=== PATIENT | female | born 2000 | race Caucasian/White ===

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

== ENCOUNTER → 2018-06-29 | Outpatient (CLI) | payer BC ==
[2018-06-29 17:29] LABS: HGB 12.7 gm/dL (11.4-16.0); MCHC 34.3 g/dL (31.0-37.0); MCV 87.4 fL (80.0-100.0); Mean Platelet Volume 7.3; Platelet Count 268 k/uL (150-450); RBC 4.24 m/uL (3.80-5.40); WBC 11.1 k/uL (4.0-11.0)
[2018-06-30 00:35] LABS: HIV 1 AB Non-Reactive (Non-Reactive); HIV AB P24 Non-Reactive (Non-Reactive); HIV P24 AG Non-Reactive (Non-Reactive)
[2018-07-02 06:27] LABS: Toxoplasma Antibody (IgG) <3.0 IU/mL (<7.2); Toxoplasma Antibody (IgM) 5.3 AU/mL (<8.0)
== END | disposition home or self-care (01) ==
LOC: LABWHC1 16:21
PROVIDERS: ATTEND Obstetrics & Gynecology
DX: Z34.81 Encounter for supervision of other normal pregnancy, first trimester (principal); Z3A.00 Weeks of gestation of pregnancy not specified
CPT/HCPCS: 36415; 82565; 82947; 85027; 86762; 86777; 86778; 86780; 86850; 86900; 86901; 87340; 87390

== ENCOUNTER 2018-09-17 23:02 | Outpatient (CLI) | payer BC, OTHER ==
[2018-09-17 23:38] VITALS: PULSE 84; RESP 16; TEMP 98.5
--- NOTE | 2018-09-18 07:37 | P.MSEPDOC ---
Presenting Problems - Arrival Data Date of Arrival on Unit: 09/17/18 Time of Arrival on Unit: 22:59 Mode of Transport: Ambulatory - Complaint OB-Reason for Admission/Chief Complaint: Possible Onset of Labor Medical History - Information : 1 Para: 0 Number of Living Children: 0 - Gestational Age Gestational Age by CHUCKY (wks/days): 25 Weeks and 5 Days Review of Systems - Review of Systems Constitutional: No problems Breast: No problems ENT: No problems Cardiovascular: No problems Respiratory: No problems Gastrointestinal: No problems Genitourinary: No problems Musculoskeletal: No problems Neurological: No problems Skin: No problems Vital Signs - Temperature Temperature: 98.5 F Temperature Source: Temporal Artery Scan - Pulse Right Sitting Brachial Pulse Rate: 84 Pulse Assessment Method: Pulse Oximetry - Respirations Respiratory Rate: 16 Oxygen Delivery Method: Room Air O2 Sat by Pulse Oximetry: 97 Medical Screen Scoring (Pre) - Cervical Exam Dilation: Exam Deferred Effacement: Exam Deferred Membranes: Intact - Uterine Contractions Frequency: N/A Duration: N/A Intensity: N/A - Maternal Vital Signs Maternal Temperature: N/A Maternal Blood Pressure: N/A Signs of Preeclampsia: N/A Maternal Respirations: N/A - Maternal Trauma Maternal Trauma: N/A - Assessment - Baby A Baseline FHR: 140 Heart Rate - NICHD Category: Category I (Normal) = 0 Position: N/A Station: N/A - Total Score - Baby A Total Score - Baby A: 0 - Total Score - Baby B Total Score - Baby B: 0 - Total Score - Baby C Total Score - Baby C: 0 - Level of Risk - Baby A Level of Risk - Baby A: Low (0-5) - Level of Risk - Baby B Level of Risk - Baby B: Low (0-5) - Level of Risk - Baby C Level of Risk - Baby C: Low (0-5) Physician Notification (Pre) - Physician Notified Physician Notified Date: 09/17/18 Physician Notified Time: 23:38 Physician/Practitioner Notifed:: dr marcos Spoke With: dr marcos New Order Received: Yes Disposition - Disposition OB Disposition: Discharge to home I agree with the RN Medical Screening Exam: Yes Risk & Benefit of care provided described in d/c instruction: Yes Diagnosis: DECREASED MOVEMENTS, SECOND TRIMESTER, UNSP
== END 2018-09-17 23:50 | disposition home or self-care (01) ==
LOC: FBPOP 23:02
PROVIDERS: ATTEND Obstetrics & Gynecology
DX: O36.8120 Decreased fetal movements, second trimester, not applicable or unspecified (principal); Z3A.25 25 weeks gestation of pregnancy
CPT/HCPCS: 99213

== ENCOUNTER 2018-11-14 12:33 | Emergency (ER) | payer BC, OTHER ==
[2018-11-14 12:39] VITALS: RESP 18
[2018-11-14] MEDS ORDERED: METOCLOPRAMIDE 5 MG/ML 2 ML VIAL IVP STA (14:01)
[2018-11-14] MEDS ORDERED: SODIUM CHLORIDE 0.9% 1,000 ML IV STA (14:01)
--- NOTE | 2018-11-14 14:22 | ED ---
General Adult HPI - General Chief complaint: Neuro Symptoms/Deficit Stated complaint: 34wks preg, hand/facial numbness Time Seen by Provider: 11/14/18 13:25 Source: patient Mode of arrival: ambulatory Limitations: no limitations - History of Present Illness Initial comments: Dictation was produced using [employer] dictation software. please excuse any grammatical, word or spelling errors. Chief Complaint: 18-year-old female 34 weeks presents with a 5 minute episode of right upper extremity and right facial paresthesia. History of Present Illness: 18-year-old female yesterday she had a 5 minute episode of right upper extremity right facial paresthesia. Patient denies any significant numbness. She states that last night. First it started with 2-3 minutes of right hand paresthesias. Shortly after she had some right facial paresthesias. States her total symptoms lasted approximately 5 minutes. Patient's been having a headache since yesterday. She does have establish OB care. no bleeding or vaginal cramping The ROS documented in this emergency department record has been reviewed and confirmed by me. Those systems with pertinent positive or negative responses have been documented in the HPI. All other systems are other negative and/or noncontributory. PHYSICAL EXAM: General Impression: Alert and oriented x3, not in acute distress HEENT: Normocephalic atraumatic, extra-ocular movements intact, pupils equal and reactive to light bilaterally, mucous membranes moist. Cardiovascular: Heart regular rate and rhythm, S1&S2 audible, no murmurs, rubs or gallops Chest: Lungs clear to auscultation bilaterally, no rhonchi, no wheeze, no rales Abdomen: Bowel sounds present, abdomen soft, non-tender, non-distended, no organomegaly Musculoskeletal: Pulses present and equal in all extremities, no peripheral edema Motor: no focal deficits noted Neurological: CN II-XII grossly intact, no focal motor or sensory deficits noted Skin: Intact with no visualized rashes Psych: Normal affect and mood ED course: 18-year-old female presents with headache and 5 minute episode of right upper shortly right facial paresthesias. Patient states she has a history of headache. Vital signs upon arrival are within acceptable limits. Patient is well-appearing at this time. Discussed patient case with neurology Dr. Kaur. Patient unlikely to have cavernous sinus thrombosis given that her symptoms are transient.Patient reevaluated at bedside with improvement of headache. Laboratory evaluation obtained showing no acute processes. Patient counseled on by some modification to avoid headache exacerbation. She is told to maintain good hydration, well-balanced diet, get adequate sleep and avoid stress. Patient understandable agreeable to plan. Return parameters discussed. Patient went for discharge. Point of care bedside ultrasound was performed. Patient has heart rate of approximately 145 bpm. - Related Data Home Medications Medication Instructions Recorded Confirmed Acetaminophen Tab [Tylenol Tab] 1,000 mg PO Q6HR PRN 11/14/18 11/14/18 Pnv,Calcium 72/Iron/Folic Acid 1 tab PO HS 11/14/18 11/14/18 [ Plus Tablet] Allergies Allergy/AdvReac Type Severity Reaction Status Date / Time No Known Allergies Allergy Verified 11/14/18 13:19 Review of Systems ROS Statement: Those systems with pertinent positive or pertinent negative responses have been documented in the HPI. ROS Other: All systems not noted in ROS Statement are negative. Past Medical History Past Medical History: GERD/Reflux History of Any Multi-Drug Resistant Organisms: None Reported Past Surgical History: No Surgical Hx Reported Additional Past Surgical History / Comment(s): oral surgery Past Psychological History: No Psychological Hx Reported Smoking Status: Never smoker Past Alcohol Use History: None Reported Past Drug Use History: None Reported General Exam Limitations: no limitations Course Vital Signs 11/14/18 11/14/18 12:35 14:20 Temperature 97.9 F Pulse Rate 126 H 74 Respiratory 18 18 Rate Blood Pressure 125/76 109/74 O2 Sat by Pulse 98 100 Oximetry Medical Decision Making - Lab Data Result diagrams: 11/14/18 14:10 11/14/18 14:10 Lab Results 11/14/18 11/14/18 Range/Units 14:10 14:10 WBC 11.4 H (4.0-11.0) k/uL RBC 4.16 (3.80-5.40) m/uL Hgb 12.1 (11.4-16.0) gm/dL Hct 35.2 (34.0-46.0) % MCV 84.6 (80.0-100.0) fL MCH 29.2 (25.0-35.0) pg MCHC 34.5 (31.0-37.0) g/dL RDW 13.6 (11.5-15.5) % Plt Count 172 (150-450) k/uL Neutrophils % 86 % Lymphocytes % 7 % Monocytes % 5 % Eosinophils % 1 % Basophils % 0 % Neutrophils # 9.8 H (1.3-7.7) k/uL Lymphocytes # 0.8 L (1.0-4.8) k/uL Monocytes # 0.5 (0-1.0) k/uL Eosinophils # 0.2 (0-0.7) k/uL Basophils # 0.0 (0-0.2) k/uL Sodium 138 (137-145) mmol/L Potassium 4.0 (3.5-5.1) mmol/L Chloride 106 (98-107) mmol/L Carbon Dioxide 25 (22-30) mmol/L Anion Gap 7 mmol/L BUN 10 (7-17) mg/dL Creatinine 0.57 (0.52-1.04) mg/dL Est GFR (CKD-EPI)AfAm >90 (>60 ml/min/1.73 sqM) Est GFR (CKD-EPI)NonAf >90 (>60 ml/min/1.73 sqM) Glucose 74 (74-99) mg/dL Calcium 9.3 (8.4-10.2) mg/dL Magnesium 2.0 (1.6-2.3) mg/dL Disposition Clinical Impression: Headache Disposition: HOME SELF-CARE Condition: Good Instructions (If sedation given, give patient instructions): Acute Headache (ED) Is patient prescribed a controlled substance at d/c from ED?: No Referrals: None,Stated [Primary Care Provider] - 1-2 days Time of Disposition: 15:27
[2018-11-14 14:27] LABS: Basophils % (A) 0 %; Eosinophils # (A) 0.2 k/uL (0-0.7); Eosinophils % (A) 1 %; HCT 35.2 % (34.0-46.0); HGB 12.1 gm/dL (11.4-16.0); Lymphocytes # (A) 0.8 k/uL (1.0-4.8); Lymphocytes % (A) 7 %; MCH 29.2 pg (25.0-35.0); MCHC 34.5 g/dL (31.0-37.0); MCV 84.6 fL (80.0-100.0); Monocytes # (A) 0.5 k/uL (0-1.0); Monocytes % (A) 5 %; Neutrophils # (A) 9.8 k/uL (1.3-7.7); Neutrophils % (A) 86 %; Platelet Count 172 k/uL (150-450); RBC 4.16 m/uL (3.80-5.40); RDW 13.6 % (11.5-15.5); WBC 11.4 k/uL (4.0-11.0)
[2018-11-14 14:36] LABS: African American GFR (CKD) >90 (>60 ml/min/1.73 sqM); Anion Gap 7 mmol/L; Blood Urea Nitrogen 10 mg/dL (7-17); Calcium 9.3 mg/dL (8.4-10.2); Carbon Dioxide 25 mmol/L (22-30); Chloride 106 mmol/L (98-107); Glucose 74 mg/dL (74-99); Sodium 138 mmol/L (137-145)
[2018-11-14 15:37] VITALS: BP 112/81; PULSE 72; TEMP 97.8
== END 2018-11-14 15:37 | disposition home or self-care (01) ==
LOC: EC 12:33
DX: O99.89 Other specified diseases and conditions complicating pregnancy, childbirth and the puerperium (principal); R51 Headache; R20.2 Paresthesia of skin; Z3A.34 34 weeks gestation of pregnancy
CPT/HCPCS: 36415; 80048; 83735; 85025; 99284; 96374; 96361; J2765

== ENCOUNTER 2018-12-14 21:11 | Inpatient (IN) | payer BC, OTHER ==
[2018-12-14] MEDS: LACTATED RINGERS 1,000 ML IV SCH (22:04)
[2018-12-14 22:14] LABS: Basophils # (A) 0.1 k/uL (0-0.2); Basophils % (A) 1 %; Eosinophils # (A) 0.2 k/uL (0-0.7); Eosinophils % (A) 2 %; HCT 31.5 % (34.0-46.0); HGB 10.3 gm/dL (11.4-16.0); Lymphocytes # (A) 1.1 k/uL (1.0-4.8); Lymphocytes % (A) 11 %; MCHC 32.9 g/dL (31.0-37.0); MCV 85.3 fL (80.0-100.0); Mean Platelet Volume 7.8; Monocytes # (A) 0.6 k/uL (0-1.0); Monocytes % (A) 6 %; Neutrophils % (A) 79 %; Platelet Count 175 k/uL (150-450); RBC 3.69 m/uL (3.80-5.40); RDW 14.2 % (11.5-15.5); WBC 10.1 k/uL (4.0-11.0)
--- NOTE | 2018-12-14 22:21 | US ---
EXAMINATION TYPE: US OB limited DATE OF EXAM: 12/14/2018 COMPARISON: NONE CLINICAL HISTORY: see if head down . SROM EXAM PERFORMED: OBTA GESTATIONAL AGE / DATING Physician Established: (38 weeks/2 days) EDC: 12/26/2018 No growth performed on today?s study per ordering physician SURVEY PRESENTATION: Vertex LIE: Longitudinal HEART RATE: 160 bpm RHYTHM: Normal IMPRESSION: This limited exam shows cephalic presentation. The heart rate is 160.
[2018-12-14 22:28] LABS: ALT 15 U/L (9-52); AST 23 U/L (14-36); African American GFR (CKD) >90 (>60 ml/min/1.73 sqM); Blood Urea Nitrogen 14 mg/dL (7-17); LDH 478 U/L (313-618)
[2018-12-14 22:31] LABS: INR 0.8 (<1.2); Partial Thromboplastin Time 24.7 sec (22.0-30.0); Prothrombin Time 9.4 sec (9.0-12.0)
[2018-12-14 22:54] VITALS: BMI 29.2
[2018-12-14] MEDS: OXYTOCIN 30 UNITS/500 ML NS 30 UNIT in SALINE 1 500ML.BAG IV SCH (23:00)
[2018-12-14] MEDS ORDERED: LIDOCAINE 0.5% (PF) 5 MG/ML (50 ML SDV) SQ PRN (23:02)
[2018-12-14] MEDS ORDERED: TERBUTALINE 1 MG/ML VIAL SQ PRN (23:02)
[2018-12-14] MEDS ORDERED: CARBOPROST TROMETHAMINE 250 MCG/ML 1 ML AMP IM PRN (23:02)
[2018-12-14] MEDS ORDERED: OXYTOCIN 10 UNIT/ML 1 ML VIAL IM PRN (23:02)
[2018-12-14] MEDS ORDERED: METHYLERGONOVINE 0.2 MG/ML 1 ML AMP IM PRN (23:02)
[2018-12-14] MEDS ORDERED: BUTORPHANOL 1 MG/ML 1 ML VIAL IV PRN (23:07)
[2018-12-14] MEDS ORDERED: LACTATED RINGERS 1,000 ML IV SCH (23:15)
[2018-12-14 23:52] LABS: Appearance,Urine Clear (Clear); Bilirubin,Urine Negative (Negative); Blood,Urine Negative (Negative); Color,Urine Light Yellow; Glucose,Urine (UA) Negative (Negative); Ketones,Urine Negative (Negative); Leukocyte Esterase,Urine Negative (Negative); Nitrite,Urine Negative (Negative); PH, Urine 6.5 (5.0-8.0); Protein,Urine Trace (Negative); Specific Gravity,Urine 1.008 (1.001-1.035); Urobilinogen,Urine <2.0 mg/dL (<2.0)
[2018-12-15 00:11] LABS: Creatinine,Urine Random 41.8 mg/dL
--- NOTE | 2018-12-15 01:29 | P.HPOB ---
History of Present Illness H&P Date: 12/15/18 Chief Complaint: Intrauterine at term: Prom Patient is a 18-year-old at 38 weeks gestation who arrives following spontaneous rupture membranes at approximately 5:00 this evening. She relates that the fluid was clear and continue to come out but she was uncertain what it is and some at 7:30 she called and I spoke with her and advised her to go to labor and delivery. At 9:30 she arrived to labor and delivery and verification of spontaneous rupture membranes was noted. She's had no contractions and is feeling no contractions. Due to her cervical exam being closed thick and high will plan to augment labor with Pitocin as she is Italo ruptured. She is aware that this may be a lengthy process, however she does have a category 1 tracing and she has no other medical concerns or issues. On initial presentation she did have some mildly elevated blood pressures but they have stabilized. Pre- clamped labs were done and while the vast majority of the pre-clamped labs were normal is noted that she had trace protein with an elevated protein creatinine ratio. This is difficult to interpret with such small amount of routine in the sample however cannot fully rule out mild preeclampsia. Pitocin augmentation of labor would be the recommendation in this situation regardless. She and I did have a long discussion on potentially needing a section if she is not make change and continues to be in labor for an extended time frame and/or if her blood pressures or other changes begin to occur. We'll plan to initiate antibiotic therapy once outside of approximately 15-18 hours following rupture membranes. Pertinent labs include O+ blood type, Rh and it was negative, rubella was immune, hepatitis B surface antigen and RPR were negative. GBS is also negative. Past Medical History Past Medical History: GERD/Reflux History of Any Multi-Drug Resistant Organisms: None Reported Past Surgical History: No Surgical Hx Reported Additional Past Surgical History / Comment(s): Douglass teeth Past Anesthesia/Blood Transfusion Reactions: No Reported Reaction Past Psychological History: No Psychological Hx Reported Smoking Status: Former smoker Past Alcohol Use History: None Reported Past Drug Use History: Marijuana - Past Family History Mother Family Medical History: No Reported History Medications and Allergies Home Medications Medication Instructions Recorded Confirmed Type Acetaminophen Tab [Tylenol Tab] 1,000 mg PO Q6HR PRN 11/14/18 11/14/18 History Pnv,Calcium 72/Iron/Folic Acid 1 tab PO HS 11/14/18 11/14/18 History [ Plus Tablet] Allergies Allergy/AdvReac Type Severity Reaction Status Date / Time No Known Allergies Allergy Verified 12/14/18 21:32 Exam Osteopathic Statement: *. No significant issues noted on an osteopathic structural exam other than those noted in the History and Physical/Consult. Vital Signs Temp Pulse Resp BP Pulse Ox 12/14/18 22:29 98.8 F 86 16 138/98 99 12/14/18 21:40 98.8 F 86 16 138/98 99 Intake and Output 12/14/18 12/14/18 12/15/18 14:59 22:59 06:59 Other: Weight 77.111 kg - OBG Physical Exam Breast: both: normal (no masses) Abdomen: bowel sounds normal, no diffuse tenderness, no bruit present, no g uarding noted, no hepatomegaly, no splenomegaly, no mass Vulva: both: normal Vagina: normal moisture, no discharge Cervix: no lesion, no discharge Uterus: normal size, normal contour Adnexa: both: normal Anus/Rectum: normal perianal skin, no rectal mass, no hemorrhoids, heme negative Results Result Diagrams: 12/14/18 22:06 12/14/18 22:06 Abnormal Lab Results - Last 24 Hours (Table) 12/14/18 12/14/18 12/14/18 Range/Units 22:06 23:30 23:30 RBC 3.69 L (3.80-5.40) m/uL Hgb 10.3 L (11.4-16.0) gm/dL Hct 31.5 L (34.0-46.0) % Neutrophils # 8.0 H (1.3-7.7) k/uL Urine Protein Trace H (Negative) U Random Total Protein 23 H (<12) mg/dL
[2018-12-15] MEDS: LACTATED RINGERS 1,000 ML IV SCH ×3 (05:09→15:35)
[2018-12-15] MEDS ORDERED: ACETAMINOPHEN IV (For NPO) 1,000 MG in EMPTY BAG 1 BAG IVPB STA (07:39)
[2018-12-15] MEDS ORDERED: CITRIC ACID-SODIUM CITRATE 15 ML CUP PO ONE (08:07)
[2018-12-15] MEDS ORDERED: OXYTOCIN 10 UNIT/ML 1 ML VIAL ONE (10:21)
[2018-12-15] MEDS ORDERED: ONDANSETRON 4 MG/2 ML VIAL ONE (10:21)
[2018-12-15] MEDS ORDERED: NALBUPHINE 10 MG/ML (1 ML AMP) ONE (10:21)
[2018-12-15] MEDS ORDERED: MORPHINE SULFATE (PF) 0.3 MG/0.3 ML SYR ONE (10:21)
[2018-12-15] MEDS ORDERED: KETOROLAC 30 MG/ML 1 ML VIAL ONE (10:21)
[2018-12-15] MEDS ORDERED: diphenhydrAMINE 50 MG/ML 1 ML VIAL IVP PRN ×3 (10:41→10:57)
[2018-12-15] MEDS ORDERED: HYDROmorphone 0.5 MG/0.5 ML SYRINGE IVP PRN (10:41)
[2018-12-15] MEDS ORDERED: NALOXONE 0.4 MG/ML 1 ML VIAL IV PRN ×2 (10:41→10:57)
[2018-12-15] MEDS ORDERED: ONDANSETRON 4 MG/2 ML VIAL IVP PRN ×2 (10:41→10:57)
[2018-12-15] MEDS ORDERED: diphenhydrAMINE 25 MG CAP PO PRN (10:57)
[2018-12-15] MEDS ORDERED: diphenhydrAMINE 50 MG CAP PO PRN (10:57)
[2018-12-15] MEDS ORDERED: ZOLPIDEM 5 MG TAB PO PRN (10:57)
[2018-12-15] MEDS ORDERED: ACETAMINOPHEN TAB 325 MG TAB PO PRN (10:57)
[2018-12-15] MEDS ORDERED: METOCLOPRAMIDE 5 MG/ML 2 ML VIAL IVP PRN (10:57)
--- NOTE | 2018-12-15 11:02 | P.OP ---
Date of Procedure: 12/15/18 Preoperative Diagnosis: Intrauterine : Failure to progress Postoperative Diagnosis: Same Procedure(s) Performed: Primary low transverse section Anesthesia: spinal Surgeon: Js Gonzales Air Support Control Officer #1: Iveth Elaine Estimated Blood Loss (ml): 500 IV fluids (ml): 700 Urine output (ml): 50 Pathology: other (Placenta) Condition: stable Disposition: floor Operative Findings: Male scores 9 and 9 at one and 5 minutes respectively and the weight was 8 lbs. 2 oz. Patient did not dilate through the night despite Pitocin augmentation and she declined to continue moving forward with induction. Description of Procedure: Patient was taken to the operative suite where a spinal anesthetic was found be adequate. She was prepped and draped in the normal sterile fashion and placed in the dorsal supine position with leftward tilt. Initially a Pfannenstiel skin incision was made and this incision was then carried through to underlying layer of the fascia with the second knife. Fascia was then nicked in the midline and this opening was extended laterally with Coto scissors. Superior and inferior aspect of this incision were then grasped tented up and bluntly and sharply dissected off the rectus muscles. Rectus muscles were then divided the midline and sharp dissection through the peritoneum was performed. This opening was then extended superiorly and inferiorly with good visualization of both bowel bladder. Bladder blade was then placed and the bladder flap identified. It was entered with Metzenbaum scissors and carried across face the uterus. Bladder flap was then digitally created. Knife was then used to incise uterus. Entry into the uterus was then completed with a hemostat and the incision was then extended bluntly. We'll fluid was there was noted to be slightly meconium- stained. Head was then H medically delivered followed by anterior posterior shoulders and mouth nares bulb suctioned. Once baby was fully delivered u mbilical cord was clamped and cut in usual fashion an nursery personnel was present to assume care. Placenta was then delivered intact and noted to be meconium-stained. Blood and debris was then removed from the uterus as it was exteriorized. It was then closed in 2 layers with 0 Vicryl suture. Once excellent hemostasis was obtained 3-0 Vicryl was used to reapproximate the bladder flap. Blood and debris was then suctioned from the posterior cul-de-sac and uterus was reinserted into the abdomen. Peritoneal layer was then closed with 0 Vicryl suture. Fascial layer was closed with 0 Vicryl. One layer of 3-0 Vicryl was placed in deep subcuticular tissues to reapproximate the skin and close the space. Skin was then closed with 3-0 Vicryl subcuticularly. Sponge, lap, needle counts were all correct 2. Patient was then taken to the recovery room in stable and satisfactory condition.
[2018-12-15 13:27] LABS: HCT 26.4 % (34.0-46.0); MCH 28.3 pg (25.0-35.0); MCV 85.9 fL (80.0-100.0); Mean Platelet Volume 8.9; Platelet Count 184 k/uL (150-450); RBC 3.07 m/uL (3.80-5.40); RDW 14.2 % (11.5-15.5); WBC 10.7 k/uL (4.0-11.0)
[2018-12-15 13:41] LABS: HGB 8.7 gm/dL (11.4-16.0)
[2018-12-15] MEDS: KETOROLAC 30 MG/ML 1 ML VIAL IVP PRN ×2 (15:33→23:04)
[2018-12-16] MEDS: SENNOSIDES-DOCUSATE SODIUM 1 EACH TAB PO SCH ×3 (01:17→19:35)
[2018-12-16] MEDS: KETOROLAC 30 MG/ML 1 ML VIAL IVP PRN ×2 (05:21→10:36)
[2018-12-16 06:56] LABS: Basophils % (A) 0 %; Eosinophils # (A) 0.1 k/uL (0-0.7); Eosinophils % (A) 2 %; HCT 20.9 % (34.0-46.0); Lymphocytes # (A) 0.8 k/uL (1.0-4.8); Lymphocytes % (A) 11 %; MCH 28.6 pg (25.0-35.0); MCHC 33.2 g/dL (31.0-37.0); MCV 86.1 fL (80.0-100.0); Mean Platelet Volume 8.9; Monocytes # (A) 0.3 k/uL (0-1.0); Monocytes % (A) 5 %; Neutrophils % (A) 81 %; Platelet Count 135 k/uL (150-450); RBC 2.43 m/uL (3.80-5.40); RDW 14.3 % (11.5-15.5); WBC 7.3 k/uL (4.0-11.0)
[2018-12-16] MEDS: HYDROcodone/APAP 7.5-325MG 1 EACH TAB PO PRN ×3 (08:37→19:34)
--- NOTE | 2018-12-16 11:29 | P.PNOBGPC ---
Subjective - Subjective Principal diagnosis: Postop day 1 Interval history: Doing well postop day 1. She is involuting, voiding and she is tolerating her diet. She voices no complaints. Vital signs are stable and afebrile. Patient reports: Reports appetite normal, Reports voiding normally, Reports pain well controlled, Reports ambulating normally : doing well Objective - Vital Signs Latest vital signs: Vital Signs Temp Pulse Resp BP Pulse Ox 12/16/18 09:00 18 12/16/18 08:30 99.1 F 91 16 125/67 97 12/16/18 05:00 16 12/16/18 04:00 98.3 F 84 16 107/73 99 12/16/18 03:00 16 99 12/16/18 01:00 16 12/16/18 00:00 98.5 F 73 16 135/88 99 12/15/18 23:00 16 99 12/15/18 21:00 16 12/15/18 20:00 98.2 F 73 18 127/81 100 12/15/18 19:00 98.5 F 73 16 135/88 99 12/15/18 17:00 20 12/15/18 15:49 97.5 F L 86 16 126/81 98 12/15/18 15:41 98 12/15/18 15:00 97.5 F L 86 16 126/81 98 12/15/18 13:41 16 12/15/18 13:07 86 16 115/65 99 12/15/18 12:32 84 16 110/74 98 12/15/18 12:06 71 16 121/71 98 12/15/18 11:51 78 16 125/66 97 12/15/18 11:41 16 97 12/15/18 11:37 72 16 109/59 97 Intake and Output 12/15/18 12/16/18 12/16/18 22:59 06:59 14:59 Intake Total 1000 Output Total 300 1200 Balance 700 -1200 Intake: IV 1000 Lactated Ringers 1,000 ml 1000 @ 125 mls/hr IV .Q8H [facility] Rx#:[id number] Output: Urine 300 1200 Uretheral (Miller) 300 Other: Voiding Method Indwelling Catheter # Voids 1 1 - Exam Lungs: bilateral: normal Chest: Normal S1, Normal S2 Extremities: Present: normal Abdomen: Present: normal appearance, soft. Absent: distention, tenderness Incision: Present: normal, dry, intact Uterus: Present: normal, firm - Labs Labs: Abnormal Lab Results - Last 24 Hours (Table) 12/15/18 12/16/18 Range/Units 13:11 06:44 RBC 3.07 L 2.43 L (3.80-5.40) m/uL Hgb 8.7 L D 7.0 L D (11.4-16.0) gm/dL Hct 26.4 L 20.9 L (34.0-46.0) % Plt Count 135 L (150-450) k/uL Lymphocytes # 0.8 L (1.0-4.8) k/uL
--- NOTE | 2018-12-16 12:22 | P.PN ---
Progress Note - Text Progress Note Date: 12/16/18 Postoperative day 1 status post section under spinal anesthesia, and i ntrathecal morphine given for postoperative analgesia, patient doing well, there is no anesthesia related complications, Patient had no headache, vital signs stable , Assessment and plan= postop day 1 status post , doing well there is no anesthesia related complication.
[2018-12-16] MEDS: LACTATED RINGERS 1,000 ML IV SCH ×3 (21:24→21:25)
[2018-12-16] MEDS: OXYTOCIN 30 UNITS/500 ML NS 30 UNIT in SALINE 1 500ML.BAG IV SCH (21:24)
[2018-12-16] MEDS: IBUPROFEN 600 MG TAB PO PRN (21:51)
[2018-12-17] MEDS: HYDROcodone/APAP 7.5-325MG 1 EACH TAB PO PRN ×3 (03:40→17:42)
--- NOTE | 2018-12-17 06:27 | P.PNOBGPC ---
Subjective - Subjective Patient reports: Reports appetite normal, Reports voiding normally, Reports pain well controlled, Reports ambulating normally : doing well Objective - Vital Signs Latest vital signs: Vital Signs Temp Pulse Resp BP Pulse Ox 12/17/18 00:00 98.2 F 80 18 134/86 100 12/16/18 15:27 98.2 F 90 16 124/70 12/16/18 12:00 98.2 F 92 18 126/81 12/16/18 09:00 18 12/16/18 08:30 99.1 F 91 16 125/67 97 Intake and Output 12/16/18 12/16/18 12/17/18 14:59 22:59 06:59 Other: # Voids 1 - Exam Lungs: bilateral: normal Chest: Normal S1, Normal S2 Extremities: Present: normal Abdomen: Present: normal appearance, soft. Absent: distention, tenderness Incision: Present: normal, dry, intact Uterus: Present: normal, firm - Labs Labs: Abnormal Lab Results - Last 24 Hours (Table) 12/16/18 Range/Units 06:44 RBC 2.43 L (3.80-5.40) m/uL Hgb 7.0 L D (11.4-16.0) gm/dL Hct 20.9 L (34.0-46.0) % Plt Count 135 L (150-450) k/uL Lymphocytes # 0.8 L (1.0-4.8) k/uL Assessment and Plan Assessment: Postoperative day #2. Patient is resting without new complaints. Hemoglobin yesterday was 7.0 and she started approximately 10 predelivery. Patient reports normal lochia at this time in her uterus is firm nontender. Her incision is intact and dry. Blood pressures are stable. She did have platelets of 135 yesterday. Plan today is to check a CBC and continue routine postoperative care. We'll begin iron therapy. At this point patient appears asymptomatic from her anemia and therefore we'll just continue to watch. (1) delivery delivered Current Visit: Yes Status: Acute Code(s): O82 - ENCOUNTER FOR DELIVERY WITHOUT INDICATION SNOMED Code(s): 501574865
[2018-12-17] MEDS: IBUPROFEN 600 MG TAB PO PRN ×3 (06:54→19:40)
[2018-12-17] MEDS: SENNOSIDES-DOCUSATE SODIUM 1 EACH TAB PO SCH ×3 (08:00→19:40)
[2018-12-17] MEDS ORDERED: IRON AG/C/B12/CA/SUC.ACID/STOM 1 EACH TAB PO SCH (09:00)
[2018-12-17 12:30] LABS: Basophils % (A) 0 %; Eosinophils # (A) 0.3 k/uL (0-0.7); Eosinophils % (A) 4 %; HCT 20.4 % (34.0-46.0); Lymphocytes # (A) 0.9 k/uL (1.0-4.8); Lymphocytes % (A) 13 %; MCH 28.3 pg (25.0-35.0); MCHC 32.7 g/dL (31.0-37.0); MCV 86.5 fL (80.0-100.0); Mean Platelet Volume 7.3; Monocytes # (A) 0.3 k/uL (0-1.0); Monocytes % (A) 5 %; Neutrophils # (A) 5.1 k/uL (1.3-7.7); Neutrophils % (A) 77 %; Platelet Count 177 k/uL (150-450); RBC 2.36 m/uL (3.80-5.40); RDW 14.3 % (11.5-15.5); WBC 6.7 k/uL (4.0-11.0)
[2018-12-17 12:34] LABS: HGB 6.7 gm/dL (11.4-16.0)
[2018-12-18] MEDS: HYDROcodone/APAP 7.5-325MG 1 EACH TAB PO PRN (01:05)
[2018-12-18] MEDS: IBUPROFEN 600 MG TAB PO PRN (06:38)
--- NOTE | 2018-12-18 06:43 | P.PNOBGPC ---
Subjective - Subjective Patient reports: Reports appetite normal, Reports voiding normally, Reports pain well controlled, Reports ambulating normally : doing well Objective - Vital Signs Latest vital signs: Vital Signs Temp Pulse Resp BP Pulse Ox 12/18/18 00:00 98.6 F 74 18 124/85 100 12/17/18 15:26 98.3 F 98 20 118/69 98 12/17/18 08:00 98.3 F 85 20 129/81 99 - Exam Lungs: bilateral: normal Chest: Normal S1, Normal S2 Extremities: Present: normal Abdomen: Present: normal appearance, soft. Absent: distention, tenderness Incision: Present: normal, dry, intact Uterus: Present: normal, firm - Labs Labs: Abnormal Lab Results - Last 24 Hours (Table) 12/17/18 Range/Units 08:39 RBC 2.36 L (3.80-5.40) m/uL Hgb 6.7 L* (11.4-16.0) gm/dL Hct 20.4 L (34.0-46.0) % Lymphocytes # 0.9 L (1.0-4.8) k/uL Assessment and Plan Assessment: Postoperative day #3. Patient is resting without new complaints. Vital signs are stable and she is afebrile. Uterus is firm nontender she's having normal lochia. Her incision is intact and dry. Repeat CBC yesterday showed her hemoglobin be 6.7 which is stable platelets laurie to 177. Patient's blood pressures fine and she is asymptomatic for the most part from her anemia. Plan today is to continue routine postoperative care. Discharge home this morning. (1) delivery delivered Current Visit: Yes Status: Acute Code(s): O82 - ENCOUNTER FOR DELIVERY WITHOUT INDICATION SNOMED Code(s): 792316507
--- NOTE | 2018-12-18 06:51 | P.DS ---
Providers Date of admission: 12/14/18 21:31 Expected date of discharge: 12/18/18 Attending physician: Abel Smith Primary care physician: Stated None - Discharge Diagnosis(es) (1) delivery delivered Current Visit: Yes Status: Acute Hospital Course: Please see dictated H&P for intimate details of this patient's admission. Brief summary this is a pleasant 18-year-old 2 para 0 female 38-3/7 weeks gestation who is admitted to labor and delivery with spontaneous rupture membranes. Patient does not progress whatsoever despite Pitocin augmentation of labor and undergoes a primary low transverse section per Dr. Gonzales, please see dictated operative note. Postoperative course is complicated by some bleeding which does resolve. Hemoglobin initially is 8.7 and 7 and then prior to discharge 6.7. Patient was started on iron therapy felt be stable for discharge home on postoperative day #3. Follow-up with me in 1 week for blood pressure check and hemoglobin. Procedures: Primary low transverse section Patient Condition at Discharge: Good Plan - Discharge Summary New Discharge Prescriptions: New Ibuprofen [Motrin] 600 mg PO Q6HR PRN #30 tab PRN Reason: Mild Pain Or Fever >= 100.5 Iron Ag/C/B12/Ca/Suc.acid/Stom [Multigen] 1 each PO DAILY #30 tab HYDROcodone/APAP 7.5-325MG [[place] 7.5-325] 1 each PO Q6H PRN #12 tab PRN Reason: Severe Pain No Action Acetaminophen Tab [Tylenol Tab] 1,000 mg PO Q6HR PRN PRN Reason: Pain Pnv,Calcium 72/Iron/Folic Acid [ Plus Tablet] 1 tab PO HS Discharge Medication List Acetaminophen Tab [Tylenol Tab] 1,000 mg PO Q6HR PRN 11/14/18 [History] Pnv,Calcium 72/Iron/Folic Acid [ Plus Tablet] 1 tab PO HS 11/14/18 [History] HYDROcodone/APAP 7.5-325MG [[place] 7.5-325] 1 each PO Q6H PRN #12 tab 12/18/18 [Rx] Ibuprofen [Motrin] 600 mg PO Q6HR PRN #30 tab 12/18/18 [Rx] Iron Ag/C/B12/Ca/Suc.acid/Stom [Multigen] 1 each PO DAILY #30 tab 12/18/18 [Rx] Follow up Appointment(s)/Referral(s): Abel Smith MD [STAFF PHYSICIAN] - 01/28/19 10:30 am (Please see me in 1 week also for an incision and blood pressure check) Patient Instructions/Handouts: (DC) Activity/Diet/Wound Care/Special Instructions: No strenuous activity or heavy lifting for 6 weeks. No intercourse or anything per vagina for 6 weeks. Please call if any fever, chills, excessive vaginal bleeding, and/or abdominal pain. Discharge Disposition: HOME SELF-CARE
[2018-12-18 07:35] VITALS: BP 128/84; PULSE 89; RESP 16; TEMP 98.1
[2018-12-18] MEDS ORDERED: INFLUENZA VACCINE (6 MOS+) 60 MCG/0.5 ML SYRINGE IM ONE (07:37)
[2018-12-18] MEDS ORDERED: DIPH,PERTUS(ACELL)TETVAC-LF 0.5 ML VIAL IM ONE (07:38)
[2018-12-18] MEDS: SENNOSIDES-DOCUSATE SODIUM 1 EACH TAB PO SCH (08:02)
== END 2018-12-18 08:00 | disposition home or self-care (01) | DRG 788 ==
LOC: FBPOP 21:11 → 4FBP 21:31
PROVIDERS: ADMIT Obstetrics & Gynecology; ATTEND Obstetrics & Gynecology
PROC: 3E033VJ Introduction of Other Hormone into Peripheral Vein, Percutaneous Approach (ICD-10-PCS; principal; 2018-12-15 10:30)
PROC: 10D00Z1 Extraction of Products of Conception, Low, Open Approach (ICD-10-PCS; principal; 2018-12-15 10:30)
DX: O42.92 Full-term premature rupture of membranes, unspecified as to length of time between rupture and onset of labor (principal); O62.2 Other uterine inertia; Z37.0 Single live birth; Z3A.38 38 weeks gestation of pregnancy; Z87.891 Personal history of nicotine dependence; O77.0 Labor and delivery complicated by meconium in amniotic fluid
CPT/HCPCS: 59025; 76815; 81003; 82565; 82570; 83615; 84112; 84156; 84450; 84460; 84520; 84550; 85025; 85027; 85384; 85610; 85730; 86850; 86900; 86901; 88307; 90686; 90715; 99213